=== PATIENT | male | born 1970 | race Caucasian/White ===

== ENCOUNTER 2019-10-24 19:18 | Emergency (ER) | payer OTHER ==
[~2019-10-24] VITALS: Ht 185.4 cm; Wt 114.0 kg
[2019-10-24] MEDS ORDERED: GENTAMICIN SULF5 ML OD (19:56)
[2019-10-24 20:00] VITALS: BP 155/98
== END 2019-10-24 20:00 | disposition home or self-care (01) | DRG 125 ==
LOC: ED 19:18
DX: S05.01XA Injury of conjunctiva and corneal abrasion without foreign body, right eye, initial encounter (principal); X58.XXXA Exposure to other specified factors, initial encounter; Y93.H3 Activity, building and construction; Y92.009 Unspecified place in unspecified non-institutional (private) residence as the place of occurrence of the external cause